=== PATIENT | female | born 1955 | race Caucasian/White ===

== ENCOUNTER → 2016-09-05 | Outpatient (CLI) | payer OTHER | LOC: MC.RAD 14:18 | DX: Z12.31 Encounter for screening mammogram for malignant neoplasm of breast (principal) ==

== ENCOUNTER → 2016-09-10 | Outpatient (CLI) | payer OTHER | LOC: MC.RAD 13:30 | DX: R92.2 Inconclusive mammogram (principal); N64.89 Other specified disorders of breast ==

== ENCOUNTER → 2017-11-03 | Outpatient (CLI) | payer BC | LOC: MC.RAD 13:51 | DX: Z12.31 Encounter for screening mammogram for malignant neoplasm of breast (principal) ==

== ENCOUNTER → 2019-02-03 | Outpatient (CLI) | payer BC | LOC: MC.RAD 14:33 | DX: Z12.31 Encounter for screening mammogram for malignant neoplasm of breast (principal) ==

== ENCOUNTER 2019-03-16 03:13 | Inpatient (IN) | payer BC, MEDICARE ==
[~2019-03-16] VITALS: Ht 157.5 cm; Wt 49.7 kg
[2019-03-16 03:57] LABS: BASO % 0.1 % (0.0-2.0); EOS % 0.1 % (0-4.0); GRAN # 7.1 (1.4-6.5); GRAN % 81.5 % (42.2-75.2); HEMATOCRIT 40.1 % (37.0-47.0); LYMPH # 1.4 (1.2-3.4); LYMPH % 15.8 % (20.0-51.0); MEAN CELL VOLUME 88 fl (80.0-100.0); MEAN CORPUSCULAR HEMOGLOBIN 29 pg (27.0-31.0); MEAN CORPUSCULAR HGB CONC 32 g/dl (33.0-37.0); MONO # 0.2 (0.1-0.6); MONO % 2.2 % (1.7-9.3); PLATELET COUNT 149 K/mm3 (130-400); RED BLOOD COUNT 4.54 M/mm3 (4.10-5.30); REDCELL DISTRIBUTION WIDTH-CV 13.6 % (11.5-14.5)
[2019-03-16 03:59] LABS: ALANINE AMINOTRANSFERASE 22 U/L (9-52); ALBUMIN 4.1 gm/dL (3.5-5.0); ALKALINE PHOSPHATASE 79 U/L (50-136); ANION GAP 10 mmol/L (7-16); AST,SGOT 36 U/L (15-37); BILIRUBIN,TOTAL 0.3 mg/dL (0.0-1.0); BLOOD UREA NITROGEN 10 mg/dL (7-17); C-REACTIVE PROTEIN 0.9 mg/dL (0.0-0.9); CALCIUM 8.4 mg/dL (8.4-10.2); CARBON DIOXIDE 23 mmol/L (22-30); CHLORIDE 107 mmol/L (98-107); CREATINE KINASE 114 U/L (30-135); CREATININE, serum 0.67 (0.52-1.25); GLUCOSE 142 mg/dL (74-106); LIPASE 66 U/L (23-300); POTASSIUM 3.7 mmol/L (3.4-5.0); SODIUM 140 mmol/L (137-145); TOTAL PROTEIN 7.1 gm/dL (6.4-8.2)
[2019-03-16 04:14] LABS: TROPONIN-I < 0.012 ng/mL (0.000-0.035)
[2019-03-16 04:24] LABS: PROTHROMBIN TIME 11.1 SECONDS (9.7-12.8)
[2019-03-16] MEDS ORDERED: CELEBREX 200MG200 MG PO (06:37)
[2019-03-16] MEDS ORDERED: ZYRTEC 10MG10 MG PO (06:40)
[2019-03-16] MEDS ORDERED: SINGULAIR 110 MG/TAB PO (06:40)
[2019-03-16] MEDS ORDERED: FOLIC ACID 11 MG/TA1 PO (06:41)
[2019-03-16] MEDS ORDERED: TREXALL10 MG PO (06:42)
[2019-03-16 09:17] VITALS: BP 127/63; PULSE 73; TEMP 97.4
[2019-03-16 12:00] VITALS: BP 108/54; PULSE 75; TEMP 98.2
[2019-03-16 16:50] LABS: COLLECTION METHOD CLEAN CATCH
[2019-03-16 16:56] LABS: PH 5 (5-8); SQUAMOUS EPITHELIAL 0-2 /hpf; URINE APPEARANCE Clear; URINE BACTERIA None Seen /hpf; URINE BILIRUBIN Negative (NEGATIVE); URINE BLOOD 2+ (NEGATIVE); URINE COLOR Yellow; URINE GLUCOSE 1+ (NEGATIVE); URINE KETONE Negative (NEGATIVE); URINE LEUKOCYTE ESTERASE Negative (NEGATIVE); URINE NITRATE Negative (NEGATIVE); URINE PROTEIN(semi-quant) Negative (NEGATIVE); URINE RBC 0-2 /hpf; URINE UROBILINOGEN Negative (NEGATIVE)
[2019-03-16 17:00] VITALS: BP 105/55; PULSE 82; TEMP 98.8
--- NOTE | 2019-03-16 19:30 | NUR ---
Received report from Janell. Patient is awake on bed. With ongoing NS at 125ml/hr at left AC. With O2 at 1LPM via NC. Patient has pain on his mid back. Pain score of 4/10.
[2019-03-16 21:43] VITALS: BP 108/56; PULSE 90; TEMP 97.6
[2019-03-17] VITALS (7 sets, daily range): BP systolic 108–167; BP diastolic 64–84; PULSE 90–141; TEMP 98.4–101.7
--- NOTE | 2019-03-17 06:36 | NUR ---
Patient has on and off complains of pain on her mid back. Her pain is mostly when she moves. Pain score is 3-4/10. Declines pain meds for now. Will endorse to day shift nurse.
[2019-03-17 07:29] LABS: HEMATOCRIT 38.6 % (37.0-47.0); HEMOGLOBIN 12.5 g/dl (12.5-16.0); MEAN CELL VOLUME 89 fl (80.0-100.0); MEAN CORPUSCULAR HEMOGLOBIN 29 pg (27.0-31.0); MEAN CORPUSCULAR HGB CONC 32 g/dl (33.0-37.0); MEAN PLATELET VOLUME 9.3 fl (7.4-10.4); PLATELET COUNT 114 K/mm3 (130-400); RED BLOOD COUNT 4.33 M/mm3 (4.10-5.30); REDCELL DISTRIBUTION WIDTH-CV 14.3 % (11.5-14.5)
[2019-03-17 07:33] LABS: CALCIUM 7.5 mg/dL (8.4-10.2); CREATININE, serum 0.63 (0.52-1.25); POTASSIUM 3.5 mmol/L (3.4-5.0)
--- NOTE | 2019-03-17 08:18 | NUR ---
Pt resting in bed awake and alert, has C/O pain in back and chaet area, medications given for relief, shift assessments complete, left Pt call light in reach, bed in lowest position.
[2019-03-17 08:20] LABS: BAND 48 % (0-10); LYMPHOCYTE 1 % (20.0-51.0); METAMYELOCYTE 11 % (0-0); MYELOCYTE 1 % (0-0); NEUTROPHILS 38 % (42.0-75.2)
--- NOTE | 2019-03-17 09:15 | NUR ---
Pt placed on chemotherapy precautions for use of oral methotrexate weekly. Primary nurse, Jose, advised that single glove is required when handling stool and that any linen contaminated with stool should be double yellow bagged and trash contaminated with stool is placed in a bag, sealed, and placed in yellow waste container. Signage outside of door.
[2019-03-17 09:55] LABS: PLATELET ESTIMATE DECREASED (NORMAL)
--- NOTE | 2019-03-17 10:42 | NUR ---
CECIL met with the patient, her (Ricky, ph#[phone]), and daughter (Whitney) to discuss discharge plan. The patient lives in [place] with her . She reports independence with ADLs and does not have any DME. The patient's PCP is Dr. Brunilda Yoder and she receives her medications at [facility]. She reports no difficulties obtaining her meds. The patient does not have advanced directives completed, but she was interested in obtaining a form for DPOA-HC. CECIL provided. The patient plans to return home with her upon discharge. The patient is currently requiring oxygen. SW to continue to monitor oxygen needs.
--- NOTE | 2019-03-17 18:25 | NUR ---
Pt rested in the room today, sleeping on and off throughout, C/O mild back pain. VS have remained stable.
--- NOTE | 2019-03-17 19:20 | NUR ---
Received report from Jose. Patient is awake, sitting on bed, with daughter on bedside. With ongoing IVF NS at 100ml.hr at left AC. Patient states mild back pain but doesn't ask for pain meds. On O2 at 2.5ml/hr via NC.
--- NOTE | 2019-03-18 03:27 | NUR ---
PATIENT'S HEART RATE 128-132 - TREATMENT NOT GIVEN
[2019-03-18 03:50] VITALS: BP 142/77; PULSE 122; TEMP 101.2
--- NOTE | 2019-03-18 04:30 | NUR ---
Patient had episode of fever 101.2. Tylenol PRN given. Patient's heart rate still on 120-130's.
[2019-03-18 05:42] VITALS: PULSE 106; TEMP 98.4
[2019-03-18 06:57] VITALS: BP 127/71; PULSE 98; TEMP 98.6
[2019-03-18 07:41] LABS: MEAN CELL VOLUME 87 fl (80.0-100.0); MEAN CORPUSCULAR HEMOGLOBIN 28 pg (27.0-31.0); MEAN CORPUSCULAR HGB CONC 33 g/dl (33.0-37.0); MEAN PLATELET VOLUME 8.8 fl (7.4-10.4); PLATELET COUNT 116 K/mm3 (130-400); RED BLOOD COUNT 3.89 M/mm3 (4.10-5.30); REDCELL DISTRIBUTION WIDTH-CV 14.2 % (11.5-14.5)
[2019-03-18 07:43] LABS: HEMATOCRIT 33.8 % (37.0-47.0)
[2019-03-18 07:50] LABS: CALCIUM 7.9 mg/dL (8.4-10.2); CREATININE, serum 0.6 (0.52-1.25); MAGNESIUM 2.1 mg/dL (1.6-2.3)
[2019-03-18 08:06] LABS: POTASSIUM 2.6 mmol/L (3.4-5.0)
[2019-03-18 08:18] LABS: PATHOLOGY DIFF REVIEW OK
[2019-03-18 08:34] LABS: BAND 28 % (0-10); LYMPHOCYTE 4 % (20.0-51.0); NEUTROPHILS 67 % (42.0-75.2); PLATELET ESTIMATE DECREASED (NORMAL)
--- NOTE | 2019-03-18 09:56 | NUR ---
Pt awake and alert, sitting in recliner, no C/O pain at this time, medications given with sip of water, shift assessment complete, left Pt call light in reach.
[2019-03-18 12:13] VITALS: BP 130/67; PULSE 117; TEMP 98.7
[2019-03-18 17:21] VITALS: BP 119/65; PULSE 116; TEMP 99.8
--- NOTE | 2019-03-18 19:29 | NUR ---
Pt rested in the room, needs standby assistance while OOB, has C/O pain in her lower back, has received tylenol for relief, no fevers noted, HR remains elevated, other VS have remained stable.
[2019-03-18 19:55] VITALS: BP 117/69; PULSE 102; TEMP 97.9
--- NOTE | 2019-03-18 20:00 | NUR ---
Received report from STEFANY Garcia. Assessment complete. Alert and oriented. Family at bedside. Denies any pain or discomfort at this time. Meds administered. INT to RFA intact, flushed, dressing CDI. Tele monitor in place, leads checked. On [place]. Needs met. Call light within reach.
[2019-03-19] VITALS (7 sets, daily range): BP systolic 109–132; BP diastolic 60–710; PULSE 81–107; TEMP 97.8–98.8
--- NOTE | 2019-03-19 03:15 | NUR ---
Standby assist to BSC. Pt c/o upper/mid back pain, rate 4-5/10. PRN Tyelnol given as requested. Needs met. Call light within reach.
--- NOTE | 2019-03-19 05:56 | NUR ---
No complaints made. Meds administered. Needs met. call light within reach.
[2019-03-19 06:26] LABS: BASO # 0.1 (0.0-0.2); BASO % 0.4 % (0.0-2.0); EOS % 0.1 % (0-4.0); GRAN # 13.5 (1.4-6.5); GRAN % 89.3 % (42.2-75.2); HEMOGLOBIN 10.4 g/dl (12.5-16.0); LYMPH # 0.6 (1.2-3.4); LYMPH % 3.9 % (20.0-51.0); MEAN CELL VOLUME 86 fl (80.0-100.0); MEAN CORPUSCULAR HEMOGLOBIN 29 pg (27.0-31.0); MEAN CORPUSCULAR HGB CONC 33 g/dl (33.0-37.0); MEAN PLATELET VOLUME 9.2 fl (7.4-10.4); MONO # 0.9 (0.1-0.6); MONO % 5.7 % (1.7-9.3); PLATELET COUNT 133 K/mm3 (130-400); RED BLOOD COUNT 3.64 M/mm3 (4.10-5.30); REDCELL DISTRIBUTION WIDTH-CV 14.3 % (11.5-14.5)
[2019-03-19 06:39] LABS: HEMATOCRIT 31.2 % (37.0-47.0)
[2019-03-19 06:42] LABS: CALCIUM 7.9 mg/dL (8.4-10.2); CREATININE, serum 0.6 (0.52-1.25); MAGNESIUM 2.2 mg/dL (1.6-2.3)
--- NOTE | 2019-03-19 07:00 | NUR ---
Report received from STEFANY Velazquez. Pt in resting, assisted to bedside commode, pt is short of breath.
--- NOTE | 2019-03-19 07:02 | NUR ---
Report given to STEFANY Pereyra.
--- NOTE | 2019-03-19 09:00 | NUR ---
Pt is feeling week, having lots of stool and urine output today especially after getting iv lasix and several antiobiotics. Getting weak from having to get up often today. INT to RFA. 02 at 3L NC. LLL fine crackles. Denies needs, soreness to bottom and back from bed. Will ocntinue to monitor.
--- NOTE | 2019-03-19 19:05 | NUR ---
Pt has been up and back to bed often with family for frequent bathroom trips. Resting in bed with 02at 3L NC. Denies needs, bedside shift report given to STEFANY Sainz who will resume care care.
--- NOTE | 2019-03-19 19:37 | NUR ---
ASSESSMENT COMPLETE. RESTING IN BED. UP TO BATHROOM. REPORTS SOA UPON EXERTION. 02 @ 3L PER N/C. REPORTS PAIN "3-4" LEFT THORACIC RIB REGION. REQUESTS "TYLENOL OR SOMETHING FOR PAIN" @ HS. DENIES OTHER NEEDS AT THIS TIME.
[2019-03-20 05:13] VITALS: BP 116/61; PULSE 88; TEMP 99.5
--- NOTE | 2019-03-20 07:00 | NUR ---
Report received from STEFANY Sainz. Pt in bed resting with eyes closed, will continue to monitor.
[2019-03-20 08:56] VITALS: BP 112/61; PULSE 96; TEMP 98.8
--- NOTE | 2019-03-20 09:00 | NUR ---
Assessment charted. PT states she "actually feels hungry today", ate a portion of her breakfast. Feeling like "maybe I will want ot shower todya" but wants to take a nap after breakfast right now. Remains on 3L NC. Lungs diminished at bases but no fine crackles heard today. IV antibiotics to RFA. Will continue to monitor.
[2019-03-20 09:28] LABS: HEMOGLOBIN 11.3 g/dl (12.5-16.0); MEAN CELL VOLUME 88 fl (80.0-100.0); MEAN CORPUSCULAR HEMOGLOBIN 29 pg (27.0-31.0); MEAN CORPUSCULAR HGB CONC 33 g/dl (33.0-37.0); MEAN PLATELET VOLUME 9.2 fl (7.4-10.4); PLATELET COUNT 195 K/mm3 (130-400); RED BLOOD COUNT 3.96 M/mm3 (4.10-5.30); REDCELL DISTRIBUTION WIDTH-CV 14.5 % (11.5-14.5)
[2019-03-20 09:43] LABS: CREATININE, serum 0.62 (0.52-1.25); HEMATOCRIT 34.8 % (37.0-47.0); MAGNESIUM 2.2 mg/dL (1.6-2.3); POTASSIUM 3.5 mmol/L (3.4-5.0)
--- NOTE | 2019-03-20 10:38 | NUR ---
Vancomycin Follow-up Pharmacy Note Current regimen: Vancomycin 1 gm IV q12h Vancomycin trough: 8.63 Adjustments: Will increase Vancomycin to 1 gm IV q8h. Pharmacy will continue to monitor and check a Vancomycin trough prior to 4th new dose on 03/21/19.
[2019-03-20 11:10] LABS: BAND 6 % (0-10); LYMPHOCYTE 9 % (20.0-51.0); NEUTROPHILS 74 % (42.0-75.2); PLATELET ESTIMATE NORMAL (NORMAL)
--- NOTE | 2019-03-20 19:14 | NUR ---
Pt resting in bed all day, somnolent this afternoon difficulty staying awake. 02 was off for some time, replaced and educated on need to maintain 02 at all times. Pt used IS today intermittnetly. Family remained at bedside. Assisted pt to bathroom, good urine output and a few soft formed stools. Resting now, bedside shift report given to STEFANY Mejia who will resume care.
[2019-03-20 19:19] VITALS: BP 104/58; PULSE 112; TEMP 100.2
--- NOTE | 2019-03-20 20:30 | NUR ---
Shift assessment complete. Pt resting in bed, sleepy but easy to wake, a&o, cooperative c cares. Pt c/o continued back/rib pain, PRN pain med recently admin, pt denies need for additional intervention. Denies any other c/o. INT patent. O2 per NC. Tele in place. Pt denies further needs. Call light in reach, will continue to monitor.
[2019-03-21] VITALS (8 sets, daily range): BP systolic 86–114; BP diastolic 49–64; PULSE 103–115; TEMP 98.2–103.3
[2019-03-21 06:47] LABS: HEMOGLOBIN 11.1 g/dl (12.5-16.0); MEAN CELL VOLUME 88 fl (80.0-100.0); MEAN CORPUSCULAR HEMOGLOBIN 28 pg (27.0-31.0); MEAN CORPUSCULAR HGB CONC 32 g/dl (33.0-37.0); MEAN PLATELET VOLUME 9.4 fl (7.4-10.4); PLATELET COUNT 220 K/mm3 (130-400); RED BLOOD COUNT 3.95 M/mm3 (4.10-5.30); REDCELL DISTRIBUTION WIDTH-CV 14.5 % (11.5-14.5)
[2019-03-21 06:59] LABS: HEMATOCRIT 34.6 % (37.0-47.0)
[2019-03-21 07:24] LABS: CALCIUM 7.8 mg/dL (8.4-10.2); CREATININE, serum 0.62 (0.52-1.25); MAGNESIUM 2.1 mg/dL (1.6-2.3); POTASSIUM 3.6 mmol/L (3.4-5.0)
[2019-03-21 07:40] LABS: BAND 11 % (0-10); LYMPHOCYTE 13 % (20.0-51.0); NEUTROPHILS 73 % (42.0-75.2); PLATELET ESTIMATE NORMAL (NORMAL)
--- NOTE | 2019-03-21 10:05 | NUR ---
Patient is A/O. Patient complain of 4/10 pain. output of 300ml this morning. Patient resting in bed.
[2019-03-21 11:49] LABS: INR 1.1 (0.8-3.0); PROTHROMBIN TIME 13.1 SECONDS (9.7-12.8)
--- NOTE | 2019-03-21 13:49 | NUR ---
Fiber Optic Central Office Installer attended clinical rounds with the team. Hospitalist discussed thoracentesis with patient. SW to continue to follow.
[2019-03-21 15:08] LABS: PLEURAL FLUID RBC 2000 /mm3 (0-0); PLEURAL FLUID WBC 643 /mm3
[2019-03-21 15:11] LABS: PLEURAL FLUID APPEARANCE HAZY; PLEURAL FLUID COLOR YELLOW
[2019-03-21 15:21] LABS: GLUCOSE,PLEURAL FLUID 77 mg/dL; TOTAL PROTEIN,PLEURAL FLUID 3.7 gm/dL
--- NOTE | 2019-03-21 15:31 | NUR ---
Patient is resting in bed after thoracentesis was performed at bedside. Temperature was 100.4 orally after procedure. Patient deny any pain at this time. Patient said she does not appetite for lunch. I provided pudding.
--- NOTE | 2019-03-21 18:58 | NUR ---
Patient is A/O. Pain level at 3/10. She refused dinner. I gave her pudding. Temperature reduced from 103.3 to 98.7 orally. Patient is resting on the bed now.
--- NOTE | 2019-03-21 19:33 | NUR ---
Pt assessment complete. Pt is sitting up in bed, reports little to no appetite for dinner. Ate some pudding. No N/V. Pt denies any loose stools. No urinary complaints. Pt denies increase SOB or sputum production. Pt denies any pain at this time. Procedure site to L posterior back CDI. POC discussed with patient who verbalizes understanding. She has no further needs. Isolation precautions in place. Will continue to monitor.
--- NOTE | 2019-03-21 19:50 | NUR ---
Bedside shift report recieved. Pt continued c/o pain around ribs et back, reports pain is much better s/p thora. Pt rates pain 5/10, requests PRN [place] at HS. Denies any other c/o or needs. Previous shift assessment agreed upon by this RN. Call light in reach, will continue to monitor.
[2019-03-22] VITALS (7 sets, daily range): BP systolic 86–112; BP diastolic 44–61; PULSE 95–128; TEMP 97.9–100.2
[2019-03-22 08:38] LABS: HEMOGLOBIN 10.8 g/dl (12.5-16.0); MEAN CELL VOLUME 89 fl (80.0-100.0); MEAN CORPUSCULAR HEMOGLOBIN 28 pg (27.0-31.0); MEAN CORPUSCULAR HGB CONC 32 g/dl (33.0-37.0); MEAN PLATELET VOLUME 9.4 fl (7.4-10.4); PLATELET COUNT 271 K/mm3 (130-400); REDCELL DISTRIBUTION WIDTH-CV 14.7 % (11.5-14.5)
[2019-03-22 08:57] LABS: CALCIUM 8.1 mg/dL (8.4-10.2); CREATININE, serum 0.62 (0.52-1.25); POTASSIUM 3.7 mmol/L (3.4-5.0)
[2019-03-22 09:02] LABS: HEMATOCRIT 33.9 % (37.0-47.0)
--- NOTE | 2019-03-22 09:06 | NUR ---
Patient is in bed, A/O. she complained of weakness and pain. I administered pain medication. Patient systolic blood pressure is < 100. Lasix held. Patient said she does not have appetite for food. Patient is resting in bed right now. Assessment: Patient have diminished breath sound in all lung [place].
[2019-03-22 10:51] LABS: BAND 7 % (0-10); HYPOCHROMIA 1+; LYMPHOCYTE 6 % (20.0-51.0); METAMYELOCYTE 1 % (0-0); MYELOCYTE 1 % (0-0); NEUTROPHILS 81 % (42.0-75.2); PLATELET ESTIMATE NORMAL (NORMAL)
--- NOTE | 2019-03-22 12:17 | NUR ---
General Medical Practitioner attended clinical rounds with the team. Patient will not discharge today. Patient confirmed she does not require oxygen at home. SW will continue to monitor oxygen needs.
--- NOTE | 2019-03-22 17:51 | NUR ---
Patient complained about chest pain 06/25. [place] was administered. Pain was reassessed, patient said she is no longer feeling the chest pain. Patient is resting on the bed at the moment.
--- NOTE | 2019-03-22 19:40 | NUR ---
Shift assessment complete. Pt resting in bed, awake, a&o, cooperative c cares. Pt c/o continued pain to ribs/back, rated 4/10 at this time, PRN pain med recently admin. Pt denies any other c/o. INT patent. O2 per NC. Pt denies any other needs. Call light in reach, will continue to monitor.
[2019-03-23 05:15] VITALS: BP 109/59; PULSE 98; TEMP 98.8
--- NOTE | 2019-03-23 07:00 | NUR ---
Report received from JOSE Mejia. Pt in bed sleeping with eyes closed, awakens upon entry, denies needs, will ocnitnue to monitor.
[2019-03-23 07:22] LABS: MEAN CELL VOLUME 89 fl (80.0-100.0); MEAN CORPUSCULAR HEMOGLOBIN 29 pg (27.0-31.0); MEAN CORPUSCULAR HGB CONC 32 g/dl (33.0-37.0); MEAN PLATELET VOLUME 8.9 fl (7.4-10.4); PLATELET COUNT 274 K/mm3 (130-400); RED BLOOD COUNT 3.51 M/mm3 (4.10-5.30); REDCELL DISTRIBUTION WIDTH-CV 14.6 % (11.5-14.5)
[2019-03-23 07:26] LABS: HEMATOCRIT 31.1 % (37.0-47.0)
[2019-03-23 07:36] LABS: CALCIUM 7.8 mg/dL (8.4-10.2); CREATININE, serum 0.52 (0.52-1.25); POTASSIUM 3.4 mmol/L (3.4-5.0)
[2019-03-23 08:08] VITALS: BP 105/65; PULSE 95; TEMP 98.1
[2019-03-23 08:08] LABS: BAND 7 % (0-10); LYMPHOCYTE 9 % (20.0-51.0); NEUTROPHILS 79 % (42.0-75.2); PLATELET ESTIMATE NORMAL (NORMAL)
--- NOTE | 2019-03-23 09:30 | NUR ---
Assessment charted. Left lung is very diminished, R lung is clear. Pt states she is feeling better and is agreeable to showering today. 02 remains at 2L NC. INT was not in LH, pt accidentally pulled out. Replaced to LFA with 22G. Family at bedside, reviewed labs. Denies needs, pain is 5/10 to pleuritic acorss lower chest, PRN pain pill provided. Will continue to monitor.
[2019-03-23 12:39] VITALS: BP 102/61; PULSE 94; TEMP 98.3
[2019-03-23 16:18] VITALS: BP 125/64; PULSE 108; TEMP 100
--- NOTE | 2019-03-23 18:01 | NUR ---
PT has done well today, resting off and on this afternoon. Titrating down on off 02 did not work, pt remains at 2L NC. Temp this evening of 102.1, will call Elena and update with temp, and give bedside shift report to nightshift nurse who will resume care.
[2019-03-23 18:06] VITALS: TEMP 101.2
--- NOTE | 2019-03-23 19:15 | NUR ---
Received report from Hafsa. Seen patient awake, sitting on bed. With O2 at 2lpm via NC. With INT on left forearm. Patient denies any pain. Patient is independent and goes up to bathroom. Will continue to monitor.
[2019-03-23 20:32] VITALS: BP 104/57; PULSE 102; TEMP 98.1
[2019-03-24] VITALS (7 sets, daily range): BP systolic 102–115; BP diastolic 57–65; PULSE 93–112; TEMP 98.4–102.6
--- NOTE | 2019-03-24 05:54 | NUR ---
Patient has been up early. She states her pain lessen a bit after taking [place]. No other complains noted aside from her pain. Patient has been afebrile the whole shift. Will endorse to day shift nurse.
[2019-03-24 06:49] LABS: HEMOGLOBIN 10.1 g/dl (12.5-16.0); MEAN CELL VOLUME 90 fl (80.0-100.0); MEAN CORPUSCULAR HEMOGLOBIN 28 pg (27.0-31.0); MEAN CORPUSCULAR HGB CONC 31 g/dl (33.0-37.0); MEAN PLATELET VOLUME 8.9 fl (7.4-10.4); PLATELET COUNT 359 K/mm3 (130-400); RED BLOOD COUNT 3.65 M/mm3 (4.10-5.30); REDCELL DISTRIBUTION WIDTH-CV 14.6 % (11.5-14.5)
[2019-03-24 07:08] LABS: CALCIUM 8.1 mg/dL (8.4-10.2); CREATININE, serum 0.59 (0.52-1.25); POTASSIUM 4.2 mmol/L (3.4-5.0)
[2019-03-24 07:21] LABS: HEMATOCRIT 32.8 % (37.0-47.0)
[2019-03-24 08:27] LABS: BAND 1 % (0-10); LYMPHOCYTE 8 % (20.0-51.0); NEUTROPHILS 87 % (42.0-75.2)
[2019-03-24 08:28] LABS: PLATELET ESTIMATE NORMAL (NORMAL)
--- NOTE | 2019-03-24 10:44 | NUR ---
Patiet is alert and oriented with mild pain on her chest. Pain ambulate to the bathroom with minimal assist. and daughter are visiting at bedside.
--- NOTE | 2019-03-24 19:15 | NUR ---
Report received from dayshift nurse at bedside. PT states she has "a little" pain but refused pain meds at this time. PT presents in bed watching tv with no s/s of distress noted. Will continue to monitor. Call light within reach and bedside table with beverage at bedside.
--- NOTE | 2019-03-24 19:24 | NUR ---
Patient is resting in bed. Patient said she have mild pain but decline any pain medication.
--- NOTE | 2019-03-24 20:15 | NUR ---
PT given pain medication for rib/back pain. PT remains in bed watching tv. Will continue to monitor.
--- NOTE | 2019-03-24 22:00 | NUR ---
PT resting in bed with tv on with no s/s of distress noted. PT reports that her pain has decreased with medication administration. Call light within reach. Will continue to monitor.
[2019-03-25] VITALS (11 sets, daily range): BP systolic 11–116; BP diastolic 53–88; PULSE 85–118; TEMP 97.9–100.9
--- NOTE | 2019-03-25 03:38 | NUR ---
PT resting in bed and opens eyes as this racebook writer enters room. PT staes she has "a little" pain coming back to her ribs from coughing and requests pain medication and a new 28oz cup of ice. Will continue to monitor.
--- NOTE | 2019-03-25 07:07 | NUR ---
PT report given at bedside to Janell MCCALL
[2019-03-25 08:50] LABS: HEMOGLOBIN 10.6 g/dl (12.5-16.0); MEAN CELL VOLUME 90 fl (80.0-100.0); MEAN CORPUSCULAR HEMOGLOBIN 28 pg (27.0-31.0); MEAN CORPUSCULAR HGB CONC 31 g/dl (33.0-37.0); MEAN PLATELET VOLUME 8.6 fl (7.4-10.4); PLATELET COUNT 409 K/mm3 (130-400); RED BLOOD COUNT 3.78 M/mm3 (4.10-5.30); REDCELL DISTRIBUTION WIDTH-CV 14.7 % (11.5-14.5)
[2019-03-25 08:52] LABS: CALCIUM 8.3 mg/dL (8.4-10.2); CREATININE, serum 0.67 (0.52-1.25); POTASSIUM 3.8 mmol/L (3.4-5.0)
[2019-03-25 08:53] LABS: HEMATOCRIT 34.1 % (37.0-47.0)
[2019-03-25 09:35] LABS: BAND 2 % (0-10); LYMPHOCYTE 7 % (20.0-51.0); METAMYELOCYTE 1 % (0-0); MYELOCYTE 1 % (0-0); NEUTROPHILS 87 % (42.0-75.2)
[2019-03-25 09:36] LABS: PLATELET ESTIMATE INCREASED (NORMAL)
--- NOTE | 2019-03-25 15:14 | NUR ---
Account Installer attended clinical rounds with the team. Hospitalist discussed CAMMY with patient. SW to continue to follow on discharge needs.
--- NOTE | 2019-03-25 15:50 | NUR ---
PATIENT BACK COLTON CAMMY PROCEDURE. ARRIVED TO FLOOR VIA WC. A/O X4. NO C/O NAUSEA. CONTINUES WITH C/O CHRONIC BACK PAIN. ASSISTED BACK TO BED. SEE FLOWSHEET FOR FVS OBTAINED
[2019-03-25 16:18] LABS: COLLECTION METHOD CLEAN CATCH
[2019-03-25 16:48] LABS: AMORPHOUS CRYSTAL Present /uL; MUCOUS Present /lpf; PH 6 (5-8); URINE APPEARANCE Hazy; URINE BACTERIA Occasional /hpf; URINE BILIRUBIN Negative (NEGATIVE); URINE BLOOD 2+ (NEGATIVE); URINE COLOR Yellow; URINE GLUCOSE Negative (NEGATIVE); URINE KETONE Negative (NEGATIVE); URINE LEUKOCYTE ESTERASE Negative (NEGATIVE); URINE NITRATE Negative (NEGATIVE); URINE PROTEIN(semi-quant) Negative (NEGATIVE); URINE UROBILINOGEN Negative (NEGATIVE)
--- NOTE | 2019-03-25 20:00 | NUR ---
Shift assessment complete. Patient in bed, awake. States pain 4/10 in throat. Prn pain medication given per pt request. Denies further needs at this time. Will continue to monitor.
--- NOTE | 2019-03-25 20:07 | NUR ---
Temp 100.9. QUEENIE Dick notified. BCx2 ordered. Lab notified and en route.
[2019-03-26 03:36] VITALS: BP 111/64; PULSE 93; TEMP 98.5
--- NOTE | 2019-03-26 05:06 | NUR ---
Patient in bed, awake. States pain 4/10 in throat/chest from coughing. Prn pain medication given. Denies further needs at this time. Will continue to monitor.
[2019-03-26 07:56] LABS: MEAN CELL VOLUME 90 fl (80.0-100.0); MEAN CORPUSCULAR HGB CONC 32 g/dl (33.0-37.0); MEAN PLATELET VOLUME 8.6 fl (7.4-10.4); PLATELET COUNT 386 K/mm3 (130-400); REDCELL DISTRIBUTION WIDTH-CV 14.7 % (11.5-14.5)
[2019-03-26 08:03] VITALS: BP 100/52; PULSE 114; TEMP 97.3
[2019-03-26 08:07] LABS: HEMATOCRIT 31.4 % (37.0-47.0); HEMOGLOBIN 9.9 g/dl (12.5-16.0); MEAN CORPUSCULAR HEMOGLOBIN 28 pg (27.0-31.0)
[2019-03-26 08:09] LABS: CALCIUM 8.3 mg/dL (8.4-10.2); CREATININE, serum 0.6 (0.52-1.25); POTASSIUM 3.9 mmol/L (3.4-5.0)
[2019-03-26 10:11] LABS: EOSINOPHIL 1 % (0-4); LYMPHOCYTE 6 % (20.0-51.0); NEUTROPHILS 86 % (42.0-75.2); PLATELET ESTIMATE NORMAL (NORMAL)
--- NOTE | 2019-03-26 10:26 | NUR ---
Assessment complete. Patient lying in bed watching tv. Family at the bedside at this time. No complaints of pain or discomfort at this time. IV site CD&I, flushed well. Pt inquired about the time her blood cultures were drawn last night, I informed her. She is aware of her plan of care. No further needs were expressed at this time. Call light is within reach.
[2019-03-26 10:56] VITALS: BP 135/89; PULSE 77; TEMP 97.4
[2019-03-26 16:29] VITALS: BP 110/62; PULSE 100; TEMP 98
[2019-03-26 17:05] VITALS: BP 110/62; PULSE 100; TEMP 98
--- NOTE | 2019-03-26 18:20 | NUR ---
Pt had an uneventful day. Awaited transfer almost all day. No complaints of pain or discomfort all day. EMS arrived and took her off the floor of this time. Called report to Vanessa at [facility].
== END 2019-03-26 18:52 | disposition short-term general hospital (02) | DRG 871 ==
LOC: COL.ER 03:13 → MEDICAL 06:21
PROVIDERS: Emergency Medicine; Hospitalist; Internal Medicine; Nurse Practitioner Family; Physician Assistant; ADMIT Student in an Organized Health Care Education/Training Program
PROC: 0W993ZZ Drainage of Right Pleural Cavity, Percutaneous Approach (ICD-10-PCS; principal; 2019-03-21)
DX: A41.02 Sepsis due to Methicillin resistant Staphylococcus aureus (principal); J96.01 Acute respiratory failure with hypoxia; J15.212 Pneumonia due to Methicillin resistant Staphylococcus aureus; J90 Pleural effusion, not elsewhere classified; J44.0 Chronic obstructive pulmonary disease with (acute) lower respiratory infection; R07.89 Other chest pain; K21.9 Gastro-esophageal reflux disease without esophagitis; M54.9 Dorsalgia, unspecified; M06.9 Rheumatoid arthritis, unspecified; R19.7 Diarrhea, unspecified; E87.6 Hypokalemia; F17.210 Nicotine dependence, cigarettes, uncomplicated; Z88.0 Allergy status to penicillin; Z90.710 Acquired absence of both cervix and uterus
CPT/HCPCS: 99222-AI; 99231-AI; 99232-AI; 99233-AI; 99239; A4216; A9284; C9113; J0456; J0692; J0696; J1650; J1885; J1940; J2060; J2405; J2704; J3010; J3370; J3480; J7030; J7050; Q9967

== ENCOUNTER 2019-04-04 10:37 | Emergency (ER) | payer BC, MEDICARE ==
[~2019-04-04] VITALS: Ht 157.5 cm; Wt 44.5 kg
[~2019-04-04 10:37] MED LIST: CELEBREX 200MG200 MG PO; FOLIC ACID 11 MG/TA1 PO; SINGULAIR 110 MG/TAB PO; TREXALL10 MG PO; ZYRTEC 10MG10 MG PO
[2019-04-04 10:42] VITALS: TEMP 97.8
[2019-04-04 11:17] LABS: BASO # 0.1 (0.0-0.2); BASO % 0.4 % (0.0-2.0); EOS % 0.2 % (0-4.0); GRAN % 76.3 % (42.2-75.2); HEMOGLOBIN 11.8 g/dl (12.5-16.0); LYMPH % 16.6 % (20.0-51.0); MEAN CELL VOLUME 88 fl (80.0-100.0); MEAN CORPUSCULAR HEMOGLOBIN 28 pg (27.0-31.0); MEAN CORPUSCULAR HGB CONC 32 g/dl (33.0-37.0); MONO % 5.2 % (1.7-9.3); PLATELET COUNT 423 K/mm3 (130-400); RED BLOOD COUNT 4.17 M/mm3 (4.10-5.30); REDCELL DISTRIBUTION WIDTH-CV 14.1 % (11.5-14.5)
[2019-04-04 11:19] LABS: HEMATOCRIT 36.6 % (37.0-47.0)
[2019-04-04 11:24] LABS: ALBUMIN 3.6 gm/dL (3.5-5.0); BILIRUBIN,TOTAL 0.4 mg/dL (0.0-1.0); CALCIUM 9.2 mg/dL (8.4-10.2); CREATININE, serum 0.74 (0.52-1.25); POTASSIUM 3.9 mmol/L (3.4-5.0); TOTAL PROTEIN 7.7 gm/dL (6.4-8.2)
[2019-04-04] MEDS ORDERED: OMNICEF 300MG300 MG PO ×2 (13:06)
[2019-04-04] MEDS ORDERED: CLEOCIN HCL300 MG PO (13:14)
[2019-04-04 13:23] VITALS: BP 108/78; PULSE 79
== END 2019-04-04 13:25 | disposition home or self-care (01) ==
LOC: COL.ER 10:37
PROVIDERS: Family Medicine
DX: T36.4X5A Adverse effect of tetracyclines, initial encounter (principal); E86.0 Dehydration; J44.9 Chronic obstructive pulmonary disease, unspecified; M06.9 Rheumatoid arthritis, unspecified; Z87.891 Personal history of nicotine dependence
CPT/HCPCS: J7030; J7040

== ENCOUNTER 2020-11-07 20:49 | Emergency (ER) | payer MEDICARE ==
[~2020-11-07] VITALS: Ht 157.5 cm; Wt 50.0 kg
[~2020-11-07 20:49] MED LIST changes: +CLEOCIN HCL300 MG PO; +OMNICEF 300MG300 MG PO
[2020-11-07 22:26] LABS: HEMATOCRIT 37.9 % (37.0-47.0); HEMOGLOBIN 12.5 g/dl (12.5-16.0); MEAN CELL VOLUME 86 fl (80.0-100.0); MEAN CORPUSCULAR HEMOGLOBIN 28 pg (27.0-31.0); MEAN CORPUSCULAR HGB CONC 33 g/dl (33.0-37.0); MEAN PLATELET VOLUME 8.9 fl (7.4-10.4); PLATELET COUNT 230 K/mm3 (130-400); RED BLOOD COUNT 4.42 M/mm3 (4.10-5.30); REDCELL DISTRIBUTION WIDTH-CV 13.9 % (11.5-14.5)
[2020-11-07 22:40] LABS: ALANINE AMINOTRANSFERASE 22 U/L (4-34); ALKALINE PHOSPHATASE 89 U/L (50-136); ANION GAP 9 mmol/L (7-16); AST,SGOT 53 U/L (15-37); BILIRUBIN,TOTAL 0.5 mg/dL (0.0-1.0); BLOOD UREA NITROGEN 9 mg/dL (7-17); C-REACTIVE PROTEIN 4.8 mg/dL (0.0-0.9); CALCIUM 9.1 mg/dL (8.4-10.2); CARBON DIOXIDE 27 mmol/L (22-30); CHLORIDE 100 mmol/L (98-107); CREATININE, serum 0.87 (0.52-1.25); GLUCOSE 105 mg/dL (74-106); POTASSIUM 3.4 mmol/L (3.4-5.0); SODIUM 136 mmol/L (137-145); TOTAL PROTEIN 7.1 gm/dL (6.4-8.2)
[2020-11-07 22:49] LABS: TROPONIN-I < 0.012 ng/mL (0.000-0.035)
[2020-11-07 22:55] LABS: EOSINOPHIL 2 % (0-4); LYMPHOCYTE 27 % (20.0-51.0); NEUTROPHILS 65 % (42.0-75.2)
[2020-11-07 22:56] LABS: PLATELET ESTIMATE NORMAL (NORMAL)
[2020-11-08] MEDS ORDERED: PREDNISONE20 MG PO (00:51)
[2020-11-08 01:28] VITALS: BP 112/71; PULSE 102; TEMP 98.7
== END 2020-11-08 01:08 | disposition home or self-care (01) ==
LOC: COL.ER 20:49
PROVIDERS: Nurse Practitioner
DX: R06.02 Shortness of breath (principal); J44.9 Chronic obstructive pulmonary disease, unspecified; Z87.891 Personal history of nicotine dependence; Z79.899 Other long term (current) drug therapy
CPT/HCPCS: J7512; Q9967

== ENCOUNTER 2021-07-13 06:47 | Emergency (ER) | payer MEDICARE ==
[~2021-07-13] VITALS: Ht 157.5 cm; Wt 51.8 kg
[~2021-07-13 06:47] MED LIST changes: +PREDNISONE20 MG PO
[2021-07-13 06:56] VITALS: TEMP 97
[2021-07-13 07:31] LABS: BASO % 0.8 % (0.0-2.0); EOS # 0.1 K/mm3 (0.0-0.7); EOS % 2.6 % (0.0-4.0); GRAN # 3.1 K/mm3 (1.4-6.5); GRAN % 58.1 % (42.2-75.2); HEMATOCRIT 39.7 % (37.0-47.0); HEMOGLOBIN 12.6 g/dl (12.5-16.0); LYMPH # 1.6 K/mm3 (1.2-3.4); LYMPH % 30.4 % (20.0-51.0); MEAN CELL VOLUME 89 fl (80.0-100.0); MEAN CORPUSCULAR HEMOGLOBIN 28 pg (27-31); MEAN CORPUSCULAR HGB CONC 32 g/dl (33.0-37.0); MEAN PLATELET VOLUME 8.5 fl (7.4-10.4); MONO # 0.4 K/mm3 (0.1-0.6); MONO % 7.5 % (1.7-9.3); PLATELET COUNT 159 K/mm3 (130-400); RED BLOOD COUNT 4.44 M/mm3 (4.10-5.30); REDCELL DISTRIBUTION WIDTH-CV 14.2 % (11.5-14.5)
[2021-07-13 07:39] LABS: PROTHROMBIN TIME 11.7 SECONDS (9.7-12.8)
[2021-07-13 07:41] LABS: PARTIAL THROMBOPLASTIN TIME 32.5 SECONDS (26.0-37.0)
[2021-07-13 07:44] LABS: D-DIMER < 200.00 ng/mLDDu (200-230)
[2021-07-13 07:52] LABS: ALANINE AMINOTRANSFERASE 18 U/L (0-55); ALBUMIN 3.7 gm/dL (3.4-4.8); ALKALINE PHOSPHATASE 64 U/L (40-150); ANION GAP 10 mmol/L (7-16); AST,SGOT 23 U/L (5-34); BILIRUBIN,TOTAL 0.5 mg/dL (0.2-1.2); BLOOD UREA NITROGEN 6 mg/dL (10-20); CALCIUM 8.6 mg/dL (8.4-10.2); CARBON DIOXIDE 26 mmol/L (23-31); CHLORIDE 109 mmol/L (98-107); CREATININE, serum 0.79 mg/dL (0.57-1.11); GLUCOSE 90 mg/dL (70-99); POTASSIUM 3.7 mmol/L (3.5-4.5); SODIUM 145 mmol/L (136-145); TOTAL PROTEIN 6.7 gm/dL (6.2-8.1)
[2021-07-13 08:00] LABS: TROPONIN-I < 0.010 ng/mL (0.00-0.033)
[2021-07-13 08:22] VITALS: BP 138/98; PULSE 52
== END 2021-07-13 08:22 | disposition home or self-care (01) ==
LOC: COL.ER 06:47
PROVIDERS: Family Medicine
DX: R07.89 Other chest pain (principal)
CPT/HCPCS: J1885

== ENCOUNTER 2023-02-18 14:47 | Emergency (ER) | payer MEDICARE ==
[~2023-02-18] VITALS: Ht 157.5 cm; Wt 52.3 kg
[2023-02-18 14:56] VITALS: TEMP 97.7
[2023-02-18 16:07] LABS: BASO # 0.1 K/mm3 (0.0-0.2); EOS # 0.1 K/mm3 (0.0-0.7); EOS % 2.3 % (0.0-4.0); GRAN # 4.6 K/mm3 (1.4-6.5); HEMATOCRIT 37.1 % (37.0-47.0); HEMOGLOBIN 11.9 g/dl (12.5-16.0); LYMPH # 0.9 K/mm3 (1.2-3.4); LYMPH % 14.7 % (20.0-51.0); MEAN CELL VOLUME 86 fl (80.0-100.0); MEAN CORPUSCULAR HEMOGLOBIN 28 pg (27-31); MEAN CORPUSCULAR HGB CONC 32 g/dl (33.0-37.0); MEAN PLATELET VOLUME 8.3 fl (7.4-10.4); MONO # 0.5 K/mm3 (0.1-0.6); MONO % 7.4 % (1.7-9.3); PLATELET COUNT 236 K/mm3 (130-400); RED BLOOD COUNT 4.32 M/mm3 (4.10-5.30)
[2023-02-18 16:30] LABS: ALANINE AMINOTRANSFERASE 20 U/L (0-55); ALBUMIN 3.3 gm/dL (3.4-4.8); ALKALINE PHOSPHATASE 86 U/L (40-150); ANION GAP 14 mmol/L (7-16); AST,SGOT 33 U/L (5-34); BILIRUBIN,TOTAL 0.9 mg/dL (0.2-1.2); BLOOD UREA NITROGEN 10 mg/dL (10-20); CALCIUM 9.7 mg/dL (8.4-10.2); CARBON DIOXIDE 21 mmol/L (23-31); CHLORIDE 106 mmol/L (98-107); CREATININE, serum 0.85 mg/dL (0.57-1.11); GLUCOSE 99 mg/dL (70-99); POTASSIUM 3.5 mmol/L (3.5-4.5); SODIUM 141 mmol/L (136-145); TOTAL PROTEIN 6.6 gm/dL (6.2-8.1)
[2023-02-18 16:38] LABS: TROPONIN-I < 0.010 ng/mL (0.00-0.033)
[2023-02-18] MEDS ORDERED: PREDNISONE50 MG PO (17:13)
[2023-02-18] MEDS ORDERED: ZITHROMAX Z PA250 MG PO (17:13)
[2023-02-18 18:49] VITALS: BP 120/68; PULSE 77
== END 2023-02-18 18:49 | disposition home or self-care (01) ==
LOC: COL.ER 14:47
PROVIDERS: Emergency Medicine
DX: J18.9 Pneumonia, unspecified organism (principal); M06.9 Rheumatoid arthritis, unspecified; Z88.0 Allergy status to penicillin; Z88.1 Allergy status to other antibiotic agents; Z79.631 Long term (current) use of antimetabolite agent
CPT/HCPCS: Q9967

== ENCOUNTER 2023-03-27 09:43 | Outpatient (CLI) | payer MEDICARE ==
[~2023-03-27] VITALS: Ht 157.5 cm; Wt 54.2 kg
[~2023-03-27 09:43] MED LIST changes: +PREDNISONE50 MG PO; -TREXALL10 MG PO; +TREXALL5 MG PO; +ZITHROMAX Z PA250 MG PO
[2023-03-27 09:55] VITALS: BP 129/80; PULSE 63; TEMP 98.2
[2023-03-27] MEDS ORDERED: PRILOSEC 20MG20 MG PO (09:59)
[2023-03-27] MEDS ORDERED: MASON NATURAL2000 IU PO (10:00)
[2023-03-27] MEDS ORDERED: Denosumab 60 MG/ML SYRINGE SQ ONE (10:00)
[2023-03-27] MEDS ORDERED: TEMOVATE0.05% TP (10:02)
[2023-03-27] MEDS ORDERED: PROAIR HFA0.09 MG/AC IH (10:03)
[2023-03-27] MEDS ORDERED: XANAX .25M0.25 MG/TA PO (10:03)
[2023-03-27] MEDS ORDERED: TYLENOL 500MG500 MG PO (10:04)
[2023-03-27] MEDS ORDERED: PROLIA60 MG/ML SQ (10:05)
--- NOTE | 2023-03-27 10:40 | NUR ---
Pt remained in dept for obs following administration of initial prolia shot. She tolerated well, no s/s of reaction. Pt is escorted out to elevator. Gait steady, she is free of complaints.
== END 2023-03-27 10:40 | disposition home or self-care (01) ==
LOC: EUO 09:43
DX: M81.0 Age-related osteoporosis without current pathological fracture (principal)
CPT/HCPCS: J0897

== ENCOUNTER 2023-09-29 12:56 | Outpatient (CLI) | payer MEDICARE ==
[~2023-09-29] VITALS: Ht 157.5 cm; Wt 56.0 kg
[~2023-09-29 12:56] MED LIST changes: +CRUTCHES MC; +MASON NATURAL2000 IU PO; +NORCO 325 MG-51 TAB PO; +PRILOSEC 20MG20 MG PO; +PROAIR HFA0.09 MG/AC IH; +PROLIA60 MG/ML SQ; +TEMOVATE0.05% TP; +TYLENOL 500MG500 MG PO; +XANAX .25M0.25 MG/TA PO
[2023-09-29] MEDS ORDERED: Denosumab 60 MG/ML SYRINGE SQ ONE (13:15)
[2023-09-29 13:35] VITALS: BP 152/85; PULSE 59; TEMP 98
== END 2023-09-29 13:54 ==
LOC: EUO 12:56
DX: M81.0 Age-related osteoporosis without current pathological fracture (principal)
CPT/HCPCS: J0897